=== PATIENT | female | born 1985 | race Caucasian/White ===

== ENCOUNTER 2016-10-18 16:00 | Emergency (ER) | payer MEDICAID ==
[~2016-10-18] VITALS: Ht 149.9 cm; Wt 63.5 kg
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
[2016-10-18 17:04] VITALS: BP 133/81
--- NOTE | 2016-10-18 17:10 | NUR ---
PT AGAIN GIVEN OPTIONS AND SHE SAID SHE WILL THINK ABOUT IT NOT NOW SHE WAS TIRED AND WANTED TO LEAVEPT. VERBALIZED UNDERSTANDING OF AFTERCARE INSTRUCTIONS.Patient discharged to home in stable condition. Written and verbal after care instructions given. Patient verbalizes understanding of instruction.
== END 2016-10-18 17:12 | disposition home or self-care (01) ==
LOC: ER 16:02
DX: T74.21XA Adult sexual abuse, confirmed, initial encounter (principal); Y92.89 Other specified places as the place of occurrence of the external cause; Z88.0 Allergy status to penicillin; Z88.8 Allergy status to other drugs, medicaments and biological substances; Z88.6 Allergy status to analgesic agent
CPT/HCPCS: 99283; A4606; Z7610